=== PATIENT | female | born 1950 | race Caucasian/White ===

== ENCOUNTER → 2017-03-30 | Outpatient (CLI) | payer OTHER, MEDICAID ==
[~2017-03-30] MED LIST: ALPR2TAB3 PO; CHOL5000 PO; COQ-100C5 PO; HYDR12.57 PO; LISI-515 PO
--- NOTE | 2017-03-31 19:18 | MH ---
cc: FRED OG M.D. DATE OF ADMISSION 03/30/2017 HISTORY OF PRESENT ILLNESS Persistent nasal obstruction after reaching cancer surgery. PAST MEDICAL HISTORY Unremarkable. PAST SURGICAL HISTORY Notable for previous cancer surgery for nasal cancer. REVIEW OF SYSTEMS/FAMILY HISTORY AND SOCIAL HISTORY Unremarkable. PHYSICAL EXAMINATION HEENT: Ears, WNL. Nasal cavity severe septal deflection with turbinate hypertrophy. Oral cavity and neck are WNL. LUNGS: Clear. HEART: Regular rate and rhythm. ABDOMEN: Soft and nontender. EXTREMITIES: Without cyanosis, clubbing or edema. NEUROLOGICALLY: Alert and oriented, nonfocal neurologic exam. IMPRESSION A patient with chronic nasal obstruction for nasal surgery. Instructed the method of surgery and possible complication include anesthetic complications, cardiac difficulty, pulmonary difficulty, stroke, or even . Surgical complications bleeding, infection, risk of packing, transfusion, recurrent epistaxis, septal perforation and persistent nasal obstruction. The patient appeared to agree, accept and understand the above-mentioned risks and benefits. In addition, no guarantees or warranties regarding outcome were given. Will therefore proceed with surgery. MD DEMETRIUS Jones/JAVIER /4:24 PM /7:04 PM
--- NOTE | 2017-03-31 20:07 | EKG ---
Date Performed: 03/30/2017 Time Performed: 11:36:43 PTAGE: 67 years EKG: Sinus rhythm NORMAL ECG NO PREVIOUS TRACING DOCTOR: Josh Rosado Interpretating Date/Time 03/31/2017 20:05:58
== END ==
LOC: CPRE 11:09
PROVIDERS: ATTEND Specialist
DX: Z01.810 Encounter for preprocedural cardiovascular examination (principal); J34.89 Other specified disorders of nose and nasal sinuses
CPT/HCPCS: 93005

== ENCOUNTER → 2017-04-01 | Day surgery (SDC) | payer OTHER, MEDICAID ==
[~2017-04-01] VITALS: Ht 167.6 cm; Wt 70.2 kg
[~2017-04-01] MED LIST changes: +ACETAMINOPHEN 1000 MG/100 ML 100 ML IV ONE; +ACETAMINOPHEN/HYDROcodone 325 MG/7.5 MG TAB PO PRN; +CHLORHEXIDINE GLUCONATE 2 % 1 PACK (2 CLOTHS) TOPICAL PRN; +DO NOT ADM ANY ANTICOAGULANT DRUGS PRN; +EPINEPHrine HCL (1:1000) 30 MG/30 ML VIAL ONE; +GELATIN 12 MM/7 MM FOAM ONE; +INSULIN HUMAN REGULAR 1,000 UNITS/10 ML VIAL SQ PRN; +LACTATED RINGER'S 1000 ML INJ 1,000 ML IV ONE; +LACTATED RINGER'S 1000 ML IV PRN; +LIDOCAINE 2%/EPINEPHrine PF 1:200,000 20ML SDV ONE; +METOPROLOL TARTRATE 25 MG TAB PO PRN; +MORPHINE SULFATE 4 MG/ML INJ IV PUSH PRN; +ONDANSETRON HCL 4 MG/2 ML VIAL IV PUSH ONE; +ONDANSETRON HCL 4 MG/2 ML VIAL IV PUSH PRN; +PHENYLEPH/NS 1000 MCG/10 ML SYR IV ONE; +POVIDONE IODINE 5% (ANTISEPSIS KIT) 4 APPLICATIONS EACH NARE PRN; +PROPOFOL 200 MG/20 ML AMP IV ONE; +SODIUM CHLORID 0.9% 500 ML IV PRN; +ePHEDrine/NS 25 MG/5 ML SYR IV ONE; +fentaNYL CITRATE 250 MCG/5 ML AMP ONE
[2017-04-01 06:49] LABS: AUTOMATED NEUTROPHIL # 5.9 TH/MM3 (1.8-7.7); BASOPHIL # 0.1 TH/MM3 (0-0.2); EOSINOPHIL # 0.1 TH/MM3 (0-0.4); EOSINOPHIL % 0.6 % (0.0-4.0); HEMATOCRIT 38.1 % (35.0-46.0); HEMO FLAGS DIFF FINAL; LYMPHOCYTE # 3.3 TH/MM3 (1.0-4.8); MEAN CELL VOLUME 96.7 FL (80.0-100.0); MEAN CORPUSCULAR HEMOGLOBIN 32.7 PG (27.0-34.0); MEAN CORPUSCULAR HGB CONC 33.9 % (32.0-36.0); MONO % 5.4 % (0.0-8.0); PLATELET COUNT 256 TH/MM3 (150-450); RED BLOOD COUNT 3.94 MIL/MM3 (4.00-5.30); RED CELL DISTRIBUTION WIDTH 13.7 % (11.6-17.2); WHITE BLOOD COUNT 9.9 TH/MM3 (4.0-11.0)
[2017-04-01 08:46] VITALS: BP 96/66; PULSE 69; RESP 18; TEMP 97.6; O2SAT 96
--- NOTE | 2017-04-04 20:25 | MP ---
cc: FRED OG DATE OF SURGERY: 04/01/2017 PREOPERATIVE DIAGNOSIS: 1. Nasal obstruction. 2. Chronic sinusitis. OPERATION: Open septal reconstruction, left endoscopic maxillary antrostomy, right endoscopic maxillary antrostomy, left inferior turbinate submucous resection, right inferior turbinate submucous resection. SURGEON: Fred Og MD ANESTHESIA: General anesthesia. ESTIMATED BLOOD LOSS: Minimal. COMPLICATIONS: No complications. DESCRIPTION OF THE PROCEDURE IN DETAIL: Prepped, draped usual fashion. 1% Xylocaine with 1:100,000 epinephrine injected into nasal septum, inferior turbinate and middle meatus bilaterally. 1:1000 adrenaline pledgets placed and then removed. Mucoperichondrial incision made on the left septum mucoperichondrial flap elevated. Significant amount of bone and cartilage removed to improve nasal airway. Mucoperichondrial flap reapproximated and sutured with 3-0 chromic stitch. The natural antrostomy identified and enlarged endoscopically left side, suction and enlarged endoscopically right side with curved suction, inferior turbinate submucosally vaporized with Coblator probe, multiple insertions made bilaterally. No active bleeding noted. The patient tolerated procedure well. Fred Og MD [facility] /7:47 AM /8:16 PM
== END | disposition home or self-care (01) ==
LOC: HSDC 05:17 → EDUNIT# 09:30
PROVIDERS: ATTEND Specialist
DX: J34.89 Other specified disorders of nose and nasal sinuses (principal); J32.9 Chronic sinusitis, unspecified; Z01.818 Encounter for other preprocedural examination; I10 Essential (primary) hypertension
CPT/HCPCS: 00160; 30140; 30520; 31256; 85025; J0131; J0171; J2370; J2405; J3010; J7120